=== PATIENT | male | born 1935 | race Caucasian/White ===

== ENCOUNTER 2019-03-25 21:13 | Emergency (ER) | payer MEDICARE ==
[~2019-03-25] VITALS: Ht 180.3 cm; Wt 175.0 kg
[2019-03-25 21:26] VITALS: BP 144/73
[2019-03-25] MEDS ORDERED: proparacaine 0.5% ophthalmic drops 15ml EACHEYE STA (21:31)
[2019-03-25] MEDS ORDERED: VIG0.5OS LEFTEYE (21:58)
[2019-03-25] MEDS ORDERED: PRED5DRO23 LEFTEYE (21:58)
== END 2019-03-25 22:08 | disposition home or self-care (01) ==
LOC: ER 21:14
DX: H20.9 Unspecified iridocyclitis (principal); Z79.2 Long term (current) use of antibiotics; Z79.899 Other long term (current) drug therapy
CPT/HCPCS: 99283